=== PATIENT | female | born 2000 | race Caucasian/White ===

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

== ENCOUNTER → 2021-01-20 13:23 | Outpatient (BNVA) | payer MEDICAID, SELFPAY | PROVIDERS: Visit Provider Nurse Practitioner Family | DX: Z20.822 Contact with and (suspected) exposure to COVID-19 (principal) | CPT/HCPCS: 87635 ==

== ENCOUNTER 2021-01-25 11:29 | Emergency (ER) | payer MEDICAID, SELFPAY ==
--- NOTE | 2021-01-25 12:07 | XR_ITS ---
WS: [id number] Portable AP upright chest, 01/25/2021 Clinical Data: cough Comparison: None. Findings: No nodules, masses or effusions are seen. The heart is normal. The pulmonary vascularity is not increased. No pneumonia or pneumothorax is seen. XR/XR chest 1V portable [id number] Impression: Negative chest.
--- NOTE | 2021-01-25 12:08 | W.ED.URI ---
HPI - URI/Sore Throat General: Chief Complaint: COVID symptoms Stated Complaint: COVID+ Time Seen by Provider: 01/25/21 12:07 History of Present Illness: HPI Narrative: Patient is a 20-year-old female comes to the ED with worsening body aches. Patient tested positive for Covid on January 20. She says her body aches have gotten worse and she took some Tylenol yesterday and did not help. Today she woke up and her body aches were unbearable and she came to the ED for evaluation. She reports having a dry cough as well. She says sometimes when she coughs it causes her to gag again have an episode of emesis. Denies any nausea, chest pain, shortness of breath, abdominal pain, bladder or bowel symptoms. Associated symptoms: Reports vomiting; Deny abdominal pain, chills, chest pain, diarrhea, fever(s), headache(s), nasal congestion or nausea Review of Systems Const: Reports: body aches; Denies: fever(s), chills or fatigue Eyes: Denies: change in vision or eye discomfort ENMT: Denies: throat pain, odynophagia, nasal discharge or nasal congestion Card: Denies: chest pain, palpitations, edema, swelling of feet/ankles, dyspnea on exertion or orthopnea Resp: Reports: non-productive cough; Denies: dyspnea or productive cough GI: Reports: vomiting; Denies: abdominal pain, nausea, diarrhea, constipation or hematochezia : Denies: flank pain, dysuria or hematuria Musc: Denies: neck pain, back pain or extremity swelling Skin/Breast: Denies: rash or new lesions Neuro: Denies: headache(s), numbness in extremities or weakness in extremities [facility] ED PFSH: Medical History ELISA (generalized anxiety disorder) MDD (major depressive disorder) Social History Smoking and tobacco status: current some day smoker e-cigarettes E-Cigarette Details: vaporizer device Alcohol intake: never Female Reproductive History: Date of last menstrual period: 10/26/20 Physical Exam Const: COMMON NORMALS: no acute distress, patient oriented x3, healthy appearing and alert GENERAL APPEARANCE: cooperative and comfortable HENMT: COMMON NORMALS: normocephalic HEAD & SCALP: normocephalic MOUTH: Normal oral and palatal mucosa present THROAT: posterior oropharynx normal and uvula midline Neck/C-Spine: COMMON NORMALS: supple GENERAL: Yes normal visual inspection Resp: COMMON NORMALS: normal respiratory effort, No retractions, No use of accessory muscles and clear to auscultation bilaterally AUSCULTATION: clear to auscultation bilaterally and crackles Laterality: right (Posterior lower lobe) Cardio: COMMON NORMALS: regular rate, regular rhythm, S1 normal heart sound present, S2 normal heart sound present, No gallops present (Cardio), No clicks present (Cardio), No murmurs present (Cardio) and Peripheral pulses 2+ throughout RATE: regular rate RHYTHM: regular rhythm HEART SOUNDS: S1 normal heart sound present and S2 normal heart sound present PERIPHERAL PULSES: Peripheral pulses 2+ throughout GI: COMMON NORMALS: Normal to inspection, nondistended, normoactive bowel sounds present, Soft to palpation, non-tender and no masses PALPATION: Yes Soft to palpation : COMMON NORMALS: Yes no CVA tenderness BLADDER/KIDNEY EXAM: Yes no CVA tenderness Back/Pelvis: COMMON NORMALS: no CVA tenderness Extremity: COMMON NORMALS: normal to inspection Neuro: COMMON NORMALS: patient oriented x3 and moves all extremities SENSORIUM/ORIENTATION: Yes alert Skin: GENERAL SKIN EXAM: dry skin Course Vital Signs: Vital signs: Vital Signs Temperature 99.2 F 01/25/21 12:26 Pulse Rate 96 01/25/21 12:26 Respiratory Rate 15 01/25/21 12:26 Blood Pressure 114/72 01/25/21 12:26 Pulse Oximetry 95 01/25/21 14:28 MDM - URI/Sore Throat MDM Narrative: Medical decision making narrative: Patient is a 20-year-old female who comes to the ED with body aches. Patient had a positive COVID-19 PCR test on January 20. Vitals stable. Exam patient is benign and she is healthy appearing, nontoxic and in no acute distress. Chest x-ray showed no acute findings. Patient was given a dose of Motrin here in the ED and discharged home. She was instructed on continuing to self quarantine. Return to ED precautions given. Follow-up with PCP in 7 days reevaluation. Patient understood agree with plan. Imaging Data^: CXR: Attestation: I personally reviewed and interpreted this imaging study as follows: Radiologist's impression: [id number] [place] [address] XRay Report Signed Patient: Heather Denton Unit #: [id number] : 2000 Age/Sex: 20 / F ADM Date: 01/25/21 Loc: ER Room/Bed: Attending Dr: Ordering Provider/Ordering MD: Ritesh Jaimes Date of Service: 01/25/21 Procedure(s): XR chest 1V portable [id number] Accession Number(s): [id number] Report Number: [id number] WS: [id number] Portable AP upright chest, 01/25/2021 Clinical Data: cough Comparison: None. Findings: No nodules, masses or effusions are seen. The heart is normal. The pulmonary vascularity is not increased. No pneumonia or pneumothorax is seen. XR/XR chest 1V portable [id number] Impression: Negative chest. Dictated By: Anila Ahmadi MD Signed By: Anila Ahmadi MD Signed Date/Time: 01/25/21 1303 DD/ 1302 Discharge Plan Discharge Patient Disposition: Home Clinical Impression: COVID-19 Condition: Stable Prescriptions: No Action mirtazapine 15 mg tablet 15 mg PO .qhs 30 Days Qty: 30 RF: 3 Xulane 150-35 mcg/24 hr patch weekly 1 patch TRANSDERMA Q7D RF: 0 Discharge Orders: Discharge ED (Routine); Ordered 01/25/21 Ordered By: Ritesh Jaimes Discharge Diet: Regular Discharge Activity: Limit activity as instructed Activity Restrictions/Additional Instructions: Follow-up with medical provider as directed. Continue self quarantine for the next 10 days starting from the day of onset of symptoms. Take ibuprofen or Tylenol for any pain or fevers. Plenty of fluids and stay hydrated. Return to the ER or your medical provider if condition worsens. Please read and understand discharge instructions. Thank you [facility] for your [facility] today. Please realize this is an emergency room and that we are providing you with a medical screening exam and this may not be complete and all inclusive of all the testing and or work up that you may need to determine your ailment or severity of your illness. It is very important that you follow up as instructed or that you return to the Emergency Department should you have concerns or if your condition changes or worsens in any way. Coding Level of Care Code ED Barrel Assembly Inspector for Selin Glover Exam Comprehensive
[2021-01-25 12:26] VITALS: BP 114/72; PULSE 96; RESP 15; TEMP 37.3; O2SAT 96; BMI 32.8
[2021-01-25 14:27] VITALS: O2SAT 95
[2021-01-25 14:28] VITALS: O2SAT 95
== END 2021-01-25 14:28 | disposition home or self-care (01) ==
PROVIDERS: Emergency Provider Physician Assistant
DX: U07.1 COVID-19 (principal); F17.290 Nicotine dependence, other tobacco product, uncomplicated
CPT/HCPCS: 71045; 99283

== ENCOUNTER → 2021-04-08 10:27 | Outpatient (BNVA) | payer MEDICAID, SELFPAY | PROVIDERS: Visit Provider Counselor Mental Health | DX: F43.12 Post-traumatic stress disorder, chronic (principal); F33.1 Major depressive disorder, recurrent, moderate; F60.3 Borderline personality disorder; Z63.4 Disappearance and death of family member | CPT/HCPCS: 90834 ==

== ENCOUNTER → 2021-04-15 10:47 | Outpatient (BNVA) | payer MEDICAID, SELFPAY | PROVIDERS: Visit Provider Counselor Mental Health | DX: F43.12 Post-traumatic stress disorder, chronic (principal); F33.1 Major depressive disorder, recurrent, moderate; F60.3 Borderline personality disorder; Z63.4 Disappearance and death of family member | CPT/HCPCS: 90834 ==

== ENCOUNTER → 2021-04-30 11:47 | Outpatient (BNVA) | payer MEDICAID, SELFPAY | PROVIDERS: Visit Provider Counselor Mental Health | DX: F43.12 Post-traumatic stress disorder, chronic (principal); F33.1 Major depressive disorder, recurrent, moderate; F60.3 Borderline personality disorder; Z63.4 Disappearance and death of family member | CPT/HCPCS: 90834 ==

== ENCOUNTER → 2021-05-28 11:50 | Outpatient (BNVA) | payer MEDICAID, SELFPAY | PROVIDERS: Visit Provider Counselor Mental Health | DX: F43.12 Post-traumatic stress disorder, chronic (principal); F33.1 Major depressive disorder, recurrent, moderate; F60.3 Borderline personality disorder; Z63.4 Disappearance and death of family member | CPT/HCPCS: 90834 ==

== ENCOUNTER → 2021-06-11 11:49 | Outpatient (BNVA) | payer MEDICAID, SELFPAY | PROVIDERS: Visit Provider Counselor Mental Health | DX: F43.12 Post-traumatic stress disorder, chronic (principal); F33.1 Major depressive disorder, recurrent, moderate; F60.3 Borderline personality disorder; Z63.4 Disappearance and death of family member | CPT/HCPCS: 90834 ==

== ENCOUNTER → 2021-06-24 09:45 | Outpatient (BNVA) | payer MEDICAID, SELFPAY | PROVIDERS: Visit Provider Counselor Mental Health | DX: F43.12 Post-traumatic stress disorder, chronic (principal); F33.1 Major depressive disorder, recurrent, moderate; F60.3 Borderline personality disorder | CPT/HCPCS: 90834 ==

== ENCOUNTER → 2024-05-19 14:23 | Outpatient (BNVA) | payer OTHER, SELFPAY | DX: Z11.3 Encounter for screening for infections with a predominantly sexual mode of transmission (principal) | CPT/HCPCS: 87491; 87591 ==

== ENCOUNTER 2024-05-21 06:24 | Emergency (ER) | payer SELFPAY ==
[2024-05-21 06:30] VITALS: BP 142/87; PULSE 87; RESP 17; TEMP 37; O2SAT 98; BMI 26.6
--- NOTE | 2024-05-21 06:31 | W.ED.GENADLT ---
HPI - General Adult General: Chief complaint: Urogenital-Female Stated complaint: cyst on vagina; painful Time Seen by Provider: 05/21/24 06:29 History of Present Illness: 23-year-old female presents emergency room complaining of a right labial cyst she has tried to manipulate it without of being able to express anything is getting increasingly painful and swollen. No fever sweats chills no dysuria urgency or frequency no vaginal discharge. It has been there for several days he last tried to get it to drain by self manipulation 2 days ago. This only seems to have exacerbated Associated symptoms: Deny rash Related Data Home Medications Medication Instructions Recorded Confirmed drospirenone 3 mg-ethinyl 1 tab PO DAILY 05/19/24 05/19/24 estradiol 0.02 mg tablet (Loryna (28)) Previous Rx's Medication Instructions Recorded hydrocodone 5 mg-acetaminophen 325 1 tab PO Q6H PRN pain #15 tabs 05/21/24 mg tablet sulfamethoxazole 800 1 tab PO BID 7 days #14 tabs 05/21/24 mg-trimethoprim 160 mg tablet (Bactrim DS) Allergies Allergy/AdvReac Type Severity Reaction Status Date / Time aripiprazole [From Abilify] AdvReac Intermediate Stomach Verified 05/21/24 06:30 Pain/Vomiting Review of Systems Const: Denies: fever(s) or chills GI: Denies: abdominal pain : Reports: genital lesions; Denies: dysuria, urinary frequency, urinary urgency, vaginal bleeding or vaginal discharge Musc: Denies: neck pain or back pain Skin/Breast: Denies: rash PFSH ED PFSH: Medical History ELISA (generalized anxiety disorder) MDD (major depressive disorder) Social History Smoking and tobacco/nicotine status: current every day tobacco/nicotine user e-cigarettes E-Cigarette Details: vaporizer device Alcohol intake: never Substance/Drug Use: current Substance/Drug use frequency: few times a week Physical Exam Const: COMMON NORMALS: no acute distress GENERAL APPEARANCE: cooperative and comfortable ORIENTATION/CONSCIOUSNESS: Yes awake, Yes oriented to person, Yes oriented to place and Yes oriented to time HENMT: COMMON NORMALS: normocephalic, atraumatic and hearing grossly normal bilaterally HEAD & SCALP: normocephalic and atraumatic Resp: COMMON NORMALS: normal respiratory effort, No retractions, No use of accessory muscles and clear to auscultation bilaterally AUSCULTATION: clear to auscultation bilaterally Cardio: COMMON NORMALS: regular rate, regular rhythm and No murmurs present (Cardio) RATE: regular rate RHYTHM: regular rhythm GI: COMMON NORMALS: Soft to palpation and No hepatosplenomegaly present AUSCULTATION: Yes normoactive bowel sounds PALPATION: Yes Soft to palpation, No Tenderness to palpation present (GI), No Guarding due to palpation present (GI) and Yes No hepatosplenomegaly present : OTHER: On exam patient has a Bartholin cyst. See notes for incision and drainage Extremity: COMMON NORMALS: normal to inspection, capillary refill normal, no clubbing, cyanosis or edema, no calf tenderness and no pedal edema Neuro: SENSORIUM/ORIENTATION: Yes oriented to person, Yes oriented to place and Yes oriented to time Skin: COMMON NORMALS: no rashes or lesions noted GENERAL SKIN EXAM: no rashes or lesions noted Procedures Abscess I/D Site: bartholin's gland Side (if applicable): right Local Anesthetic: lidocaine 1% and with epi Amount of anesthesia used (mL): 4 Technique: incised with #11 blade Amount of fluid expressed (mL): 2 Irrigation: Yes Packing used?: plain Course Vital Signs: Vital signs: Vital Signs Temperature 98.6 F 05/21/24 06:30 Pulse Rate 85 05/21/24 08:51 Respiratory Rate 17 05/21/24 06:42 Blood Pressure 141/87 05/21/24 08:51 Pulse Oximetry 99 05/21/24 08:51 Oxygen Delivery Me thod Room Air 05/21/24 06:42 MDM - General Adult Medical Decision Making No Word catheter available instead we packed bilateral forearm gauze. Have it changed that to the walk-in clinic tomorrow started on Bactrim give pain medications follow-up with primary care or gynecology. Return if has worsening or changes symptoms Medical Records I reviewed the patient's medical records. Lab Data I reviewed the patient's lab results. No radiology studies performed this visit Discharge Plan Discharge Patient Disposition: Home Clinical Impression: Bartholin cyst Condition: Stable Prescriptions: New hydrocodone-acetaminophen 5-325 mg tablet 1 tab PO Q6H PRN (Reason: pain) Qty: 15 0RF sulfamethoxazole-trimethoprim [Bactrim DS] 800-160 mg tablet 1 tab PO BID 7 Days Qty: 14 0RF Discontinued amoxicillin 500 mg capsule 500 mg PO TID Qty: 30 0RF No Action drospirenone-ethinyl estradiol [Loryna (28)] 3-0.02 mg tablet 1 tab PO DAILY Discharge Orders: Discharge ED (Routine); Ordered 05/21/24 Ordered By: Alex Patel Discharge Diet: Usual diet Discharge Activity: Resume usual activity Patient Instructions: Bartholin Cyst (ED), Opioid Safety, Pain Management Activity Restrictions/Additional Instructions: Thank you for choosing [facility] for your healthcare needs today. It is very important that you follow up as instructed or that you return to the Emergency Department should you have concerns or if your condition changes or worsens in any way. Return to walk-in clinic to have packing changed tomorrow. Use pain medication as you start oral antibiotic today. Follow-up with your primary care doctor or your retention representative as soon as you are able Coding Level of Care Code ED Operations Support Representative for Selin Glover
[2024-05-21 06:42] VITALS: BP 141/87; PULSE 104; RESP 17; O2SAT 97
[2024-05-21 08:51] VITALS: BP 141/87; PULSE 85; O2SAT 99
== END 2024-05-21 08:52 | disposition home or self-care (01) ==
PROVIDERS: Emergency Provider Family Medicine
DX: N75.0 Cyst of Bartholin's gland (principal); F17.290 Nicotine dependence, other tobacco product, uncomplicated
CPT/HCPCS: 56420; 99283

== ENCOUNTER → 2024-06-14 16:19 | Outpatient (BNVA) | payer OTHER, SELFPAY | DX: Z30.9 Encounter for contraceptive management, unspecified (principal) | CPT/HCPCS: 81025 ==